=== PATIENT | female | born 1960 | race Caucasian/White ===

== ENCOUNTER 2024-10-30 08:40 | Outpatient (REF) | payer BC, SELFPAY ==
--- OUTSIDE RECORDS SUMMARY | 2024-10-30 09:04 | XMS_ITS | Clinical Summary ---
Author Organization 175 [facility] Address 175 [place] [address] Phone Care Team Providers Care Line Helper Name Role Phone Segun Scruggs MD Primary Care Provider [phone] Allergies No known active allergies Medications No known medications Encounters Date Type Department Care Team Description 10/21/2024 Telephone Internal Medicine [facility] 175 [facility] [address] [place] [phone] Nav Boateng [place] Results 10/18/2024 11:30 AM EDT Office Visit Internal Medicine [facility] [address] [phone] Segun Scruggs MD Leg cramp (Primary Dx); Smoker; Hip pain, unspecified laterality; Dizziness 08/05/2024 8:15 AM EDT - 08/05/2024 11:59 PM EDT Hospital Encounter Radiology Department - [address] [phone] Encounter for screening mammogram for breast cancer Discharge Disposition: Home or Self Care from Last 3 Months Surgical History Surgery Date Site/Laterality Comments ROTATOR CUFF REPAIR 2015 Right PROCEDURE: HISTORICAL ROTATOR CUFF REPAIR; COMMENT: JAYA's BREAST LUMPECTOMY PROCEDURE: HISTORICAL BREAST LUMPECTOMY; COMMENT: benign BREAST BIOPSY Right PROCEDURE: BX BREAST; PERC NEEDLE CORE W/IMAG GUID; COMMENT: benign at age 32 Medical History Medical History Date Comments Tobacco abuse disorder DX:Tobacc o abuse disorder Family History Medical History Relation Name Comments Heart attack Brother s/p stenting Prostate cancer Father lung cancer (+smoker) Alcohol abuse Maternal Grandmother Coronary artery disease Mother Heart attack Mother alocholism Stroke Mother Alcohol abuse Paternal Grandfather Alcohol abuse Paternal Grandmother Alcohol abuse Sister Breast cancer Neg Hx Colon cancer Neg Hx Ovarian cancer Neg Hx Relation Name Status Comments Brother Alive Father Maternal Grandfather unknown Other Maternal Grandmother Mother Paternal Grandfather Paternal Grandmother Sister Alive Social History Tobacco Use Types Packs/Day Years Used Date Smoking Tobacco: Every Day Cigarettes Smokeless Tobacco: Never Alcohol Use Standard Drinks/Week Comments Yes 0 (1 standard drink = 0.6 oz pur e alcohol) Comments No Sex and Gender Information Value Date Recorded Sex Assigned at Not on file Legal Sex Female 1:24 PM EST Gender Identity Not on file Sexual Orientation Not on file Obstetrics History Para Term AB IAB SAB Ectopic Multiple Livin g Live Births 2 2 2 2 Date Outcome GA Total Labor Labor/2nd/3rd Weight Sex Type Anes PTL Joselyn A1 A5 Name Clin Term Term Last Filed Vital Signs Vital Sign Reading Time Taken Comments Blood Pressure 128/70 10/18/2024 11:39 AM EDT Pulse 61 10/18/2024 11:39 AM EDT Temperature 36.2 ??C (97.1 ??F) 10/18/2024 11:39 AM E DT Respiratory Rate - - Oxygen Saturation 95% 10/18/2024 11:39 AM EDT Inhaled Oxygen Concentration - - Weight 65.9 kg (145 lb 3.2 oz) 10/18/2024 11:39 AM EDT Height 157.5 cm (5' 2 ) 10/31/2023 9:11 AM EDT Body Mass Index 26.56 10/31/2023 9:11 AM EDT Plan of Treatment Upcoming Encounters Date Type Department Care Team (Late st Contact Info) Description 11/08/2024 11:30 AM EDT Office Visit Internal Medicine - [place] 175 [facility] [address] [place] [phone] Segun Scruggs MD 175 [facility] [address] [place] [address] 01/08/2025 8:30 AM EDT Consult Vascular Surgery - [place] 300 [facility] [address] [place] [phone] Celia Chavez MD [address] [facility] [address] [place] [address] Health Maintenance Due Date Last Done Comments Pneumococcal Vaccine: 50+ Years (3 of 3 - PPSV23, PCV20 or PCV21) 04/09/2020 02/13/2020, 03/03/2010 Pneumococcal Vaccine: Pediatrics (0 to 5 Years) and At-Risk Patients (6 to 64 Years) (3 of 3 - PPSV23, PCV20 or PCV21) 04/09/2020 02/13/2020, 03/03/2010 Cervical Cancer Screening: Pap Smear 03/05/2022 03/05/2019 Colorectal Cancer Screening: Stool Based Tests (FOBT/FIT) 04/30/2022 Depression Screening 04/30/2022 HIV Screening 04/30/2022 Hepatitis C Screening 04/30/2022 Social Influencers of Health Screening 04/30/2022 COVID-19 Vaccine (7 - Pfizer risk season) 2024 02/23/2024, 08/10/2023, 10/29/2021, Additional history exists Lung Cancer Screening (Low Dose CT) 01/10/2025 01/11/2024, 01/10/2024 Breast Cancer Screening 08/05/2026 08/06/19, 07/13/2023, 07/05/2022, Additional history exists Cholesterol Screening (Lipid Panel) 10/21/2029 10/21/2024, 03/11/2024 DTaP,Tdap,and Td Vaccines (3 - Td or Tdap) 01/13/2030 01/14/2020, 12/07/2018 RSV Immunization Adult Patients Completed 03/17/2023 Zoster Vaccines Completed 08/10/2023, 06/16/2021 Influenza Vaccine Completed 02/23/2024, , 03/24/2022, Additional history exists HIB Vaccines Aged Out No longer eligi ble based on patient's age to complete this topic HPV Vaccines Aged Out No longer eligi ble based on patient's age to complete this topic Hepatitis A Vaccines Aged Out No long er eligible based on patient's age to complete this topic Hepatitis B Vaccines Aged Out No long er eligible based on patient's age to complete this topic IPV Vaccines Aged Out No longer eligi ble based on patient's age to complete this topic MMR Vaccines Aged Out No longer eligi ble based on patient's age to complete this topic Meningococcal ACWY Vaccine Aged Out N o longer eligible based on patient's age to complete this topic Meningococcal B Vaccine Aged Out No l onger eligible based on patient's age to complete this topic RSV Immunization Patients Under 20 months Aged Out No longer eligible based on patient's age to complete this topic Varicella Vaccines Aged Out No longer eligible based on patient's age to complete this topic Procedures Procedure Name Priority Date/Time Associated Diagnosis Comments CBC WITH AUTO DIFFERENTIAL Routine 10/21/2024 7:32 AM EDT Leg cramp Smoker Hip pain, unspecified laterality Dizziness CBC AND DIFFERENTIAL Routine 10/21/2024 7:32 AM EDT Leg cramp Smoker Hip pain, unspecified laterality Dizziness COMPREHENSIVE METABOLIC PANEL Routine 10/21/2024 7:32 AM EDT Leg cramp Smoker Hip pain, unspecified laterality Dizziness LIPID PANEL WITH REFLEX TO DIRECT LDL Routine 10/21/2024 7:32 AM EDT Leg cramp Smoker Hip pain, unspecified laterality Dizziness THYROID STIMULATING HORMONE Routine 10/21/2024 7:32 AM EDT Leg cramp Smoker Hip pain, unspecified laterality Dizziness VITAMIN D 25 HYDROXY Routine 10/21/2024 7:32 AM EDT Leg cramp Smoker Hip pain, unspecified laterality Dizziness CREATINE KINASE Routine 10/21/2024 7:32 AM EDT Leg cramp Smoker Hip pain, unspecified laterality Dizziness MG MAMMO DIGITAL SCREENING W SETWART BILAT Routine 08/05/2024 8:32 AM EDT Encounter for screening mammogram for breast cancer CT LUNG SCREENING LOW DOSE Routine 01/11/2024 2:38 PM EDT Encounter for screening for malignant neoplasm of respiratory organs PAP SMEAR Routine 03/05/2019 from Last 3 Months or Most Recently Relevant to Health Maintenance Results * (ABNORMAL) Lipid panel with reflex to direct LDL (10/21/2024 7:32 AM EDT) Cholesterol 212(H) 0 - 200 mg/dL LAB CHEMISTRY METHOD 10/21/2024 10:28 AM EDT [facility] Triglycerides 80 0 - 150 mg/dL LAB CHEMISTRY METHOD 10/21/2024 10:28 AM EDT [facility] HDL 59 >=40 mg/dL LAB CHEMISTRY METHOD 10/21/2024 10:28 AM EDT [facility] LDL Calculated 137(H) 0 - 100 mg/dL LAB CHEMISTRY METHOD 10/21/2024 10:28 AM EDT [facility] VLDL Cholesterol [place] 16 mg/dL LAB CHEMISTRY METHOD 10/21/2024 10:28 AM EDT [facility] Non HDL Chol. (LDL+VLDL) 153(H) <145 mg/dL LAB CHEMISTRY METHOD 10/21/2024 10:28 AM EDT [facility] Chol/HDL Ratio 3.6 0.0 - 4.4 LAB CHEMISTRY METHOD 10/21/2024 10:28 AM EDT [facility] Blood Venous blood specimen / Unknown Venipuncture / Unknown 10/21/2024 7:32 AM EDT 10/21/2024 7:32 AM EDT us Segun Scruggs MD LAB BLOOD ORDERABLES Final Resul t [facility] [address] [place] [address], [place] [phone] * CBC auto differential (10/21/2024 7:32 AM EDT) Pathologist [facility] WBC 6.2 4.8 - 10.8 K/mcL LAB HEMETOLOG[facility] RBC 4.70 3.80 - 4.80 M/mcL LAB HEMETOLOGY METHOD 10/21/2024 10:20 AM [facility] Hemoglobin 13.9 11.5 - 16.0 g/dL LAB HEMETOLOGY METHOD 10/21/2024 10:20 AM [facility] Hematocrit 42.0 35.0 - 47.0 % LAB HEMETOLOGY METHOD 10/21/2024 10:20 AM [facility] MCV 89.9 79.0 - 98.0 FL LAB HEMETOLOGY METHOD 10/21/2024 10:20 AM [facility] MCH 29.8 27.0 - 32.0 pcg LAB HEMETOLOGY METHOD 10/21/2024 10:20 AM [facility] MCHC 33.1 32.0 - 37.0 g/dL LAB HEMETOLOGY METHOD 10/21/2024 10:20 AM [facility] RDW 13.1 11.0 - 15.0 % LAB HEMETOLOGY METHOD 10/21/2024 10:20 AM [facility] Platelets 333 130 - 400 K/mcL LAB HEMETOLOGY METHOD 10/21/2024 10:20 AM [facility] MPV 10.9 7.0 - 11.0 FL LAB HEMETOLOGY METHOD 10/21/2024 10:20 AM [facility] NRBC 0.0 <1.0 % LAB HEMETOLOGY METHOD 10/21/2024 10:20 AM [facility] NRBC Absolute 0.00 <0.10 K/mcL LAB HEMETOLOGY METHOD 10/21/2024 10:20 AM [facility] Neutrophils Relative 53.0 % LAB HEMETOLOGY METHOD 10/21/2024 10:20 AM [facility] Lymphocytes Relative 32.4 % LAB HEMETOLOGY METHOD 10/21/2024 10:20 AM [facility] Monocytes Relative 6.9 % LAB HEMETOLOGY METHOD 10/21/2024 10:20 AM [facility] Eosinophils Relative 6.1 % LAB HEMETOLOGY METHOD 10/21/2024 10:20 AM [facility] Basophils Relative 1.3 % LAB HEMETOLOGY METHOD 10/21/2024 10:20 AM [facility] Immature Granulocytes Relative 0.3 % LAB HEMETOLOGY METHOD 10/21/2024 10:20 AM [facility] Neutrophils Absolute 3.31 1.50 - 7.00 K/mcL LAB HEMETOLOGY METHOD 10/21/2024 10:20 AM [facility] Lymphocytes Absolute 2.02 1.00 - 5.00 K/mcL LAB HEMETOLOGY METHOD 10/21/2024 10:20 AM [facility] Monocytes Absolute 0.43 0.20 - 1.00 K/mcL LAB HEMETOLOGY METHOD 10/21/2024 10:20 AM [facility] Eosinophils Absolute 0.38 0.00 - 0.50 K/mcL LAB HEMETOLOGY METHOD 10/21/2024 10:20 AM [facility] Basophils Absolute 0.08 0.00 - 0.20 K/mcL LAB HEMETOLOGY METHOD 10/21/2024 10:20 AM [facility] Immature Granulocytes Absolute 0.02 0.00 - 0.03 K/mcL LAB HEMETOLOGY METHOD 10/21/2024 10:20 AM [facility] Blood Venous blood specimen / Unknown Venipuncture / Unknown 10/21/2024 7:32 AM EDT 10/21/2024 7:32 AM EDT us Segun Scruggs MD LAB BLOOD ORDERABLES Final Resul t Performing Organization Address [facility]/ZIP Co de Phone Number [facility] [address] [place] [address], [place] [phone] * (ABNORMAL) Vitamin D 25 hydroxy (10/21/2024 7:32 AM EDT) Pathologist [facility] Vit D, 25-Hydroxy 27.2(L) 30.0 - 80.0 ng/mL LAB CHEMISTRY METHOD 10/21/2024 11:03 AM EDT [facility] Blood Venous blood specimen / Unknown Venipuncture / Unknown 10/21/2024 7:32 AM EDT 10/21/2024 7:32 AM EDT us Segun Scruggs MD LAB BLOOD ORDERABLES Final Resul t Performing Organization Address [facility] Co de Phone Number [facility] [address] [place] [address], [place] [phone] * Thyroid stimulating hormone (10/21/2024 7:32 AM EDT) Pathologist [facility] TSH 1.36 0.40 - 4.00 mcIU/mL LAB CHEMISTRY METHOD 10/21/2024 11:04 AM EDT [facility] Blood Venous blood specimen / Unknown Venipuncture / Unknown 10/21/2024 7:32 AM EDT 10/21/2024 7:32 AM EDT us Segun Scruggs MD LAB BLOOD ORDERABLES Final Resul t Performing Organization Address [facility] Co de Phone Number [facility] [address] [place] [address], [place] [phone] * Creatine kinase (10/21/2024 7:32 AM EDT) Pathologist [facility] Total CK 56 22 - 269 unit/L LAB CHEMISTRY METHOD 10/21/2024 10:28 AM EDT [facility] Blood Venous blood specimen / Unknown Venipuncture / Unknown 10/21/2024 7:32 AM EDT 10/21/2024 7:32 AM EDT Segun Scruggs MD LAB BLOOD ORDERABLES Final Resul t [facility] [address] [place] [address], * Comprehensive metabolic panel (10/21/2024 7:32 AM EDT) Sodium 140 133 - 145 mmol/L LAB CHEMISTRY METHOD 10/21/2024 10:28 AM [facility] Potassium 5.1 3.5 - 5.5 mmol/L LAB CHEMISTRY METHOD 10/21/2024 10:28 AM [facility] Chloride 107 96 - 110 mmol/L LAB CHEMISTRY METHOD 10/21/2024 10:28 AM [facility] CO2 29 21 - 32 mmol/L LAB CHEMISTRY METHOD 10/21/2024 10:28 AM [facility] Anion Gap 4 3 - 11 LAB CHEMISTRY METHOD 10/21/2024 10:28 AM [facility] Glucose 95 70 - 100 mg/dL LAB CHEMISTRY METHOD 10/21/2024 10:28 AM [facility] BUN 12 5 - 25 mg/dL LAB CHEMISTRY METHOD 10/21/2024 10:28 AM [facility] Creatinine 0.85 0.50 - 1.10 mg/dL LAB CHEMISTRY METHOD 10/21/2024 10:28 AM [facility] eGFR 78 >=60 mL/min/1. 73m2 LAB CHEMISTRY METHOD 10/21/2024 10:28 AM [facility] Comment:Calculation based on the Chronic Kidney Disease Epidemiology Collaboration (CKD-EPI) equation refit without adjustment for race. BUN/Creatinine Ratio 14.1 LAB CHEMISTRY METHOD 10/21/2024 10:28 AM EDT [facility] Calcium 9.1 8.5 - 10.5 mg/dL LAB CHEMISTRY METHOD 10/21/2024 10:28 AM [facility] AST (SGOT) 14 10 - 42 unit/L LAB CHEMISTRY METHOD 10/21/2024 10:28 AM [facility] ALT (SGPT) 19 10 - 60 unit/L LAB CHEMISTRY METHOD 10/21/2024 10:28 AM T [facility] Alkaline Phosphatase 104 42 - 121 unit/L LAB CHEMISTRY METHOD 10/21/2024 10:28 AM [facility] Total Protein 6.8 6.0 - 8.0 g/dL LAB CHEMISTRY METHOD 10/21/2024 10:28 AM [facility] Albumin 3.8 3.2 - 5.0 g/dL LAB CHEMISTRY METHOD 10/21/2024 10:28 AM [facility] Total Bilirubin 0.3 0.0 - 1.4 mg/dL LAB CHEMISTRY METHOD 10/21/2024 10:28 AM [facility] Blood Venous blood specimen / Unknown Venipuncture / Unknown 10/21/2024 7:32 AM EDT 10/21/2024 7:32 AM EDT us Segun Scruggs MD LAB BLOOD ORDERABLES Final Resul t [facility] [address] [place] [address], [place] [phone] * MG Mammo Digital Screening w Stewart bilat (08/05/2024 8:32 AM EDT) Anatomical Region Laterality Modality Breast Bilateral Mammography 08/05/2024 8:35 PM EDT Impressions 08/05/2024 8:36 PM EDT No mammographic evidence of malignancy. BREAST DENSITY: B - There are scattered areas of fibroglandular density. BI-RADS CATEGORY: 1 - NEGATIVE RECOMMENDATION: Screening bilateral mammogram is recommended in 1 year. MAMMO LOCATION: [facility], [address] [place] [address], [id number], . -------- FINAL REPORT -------- Dictated By: Anitha Irving Dictated Date: 08/05/2024 20:35 ET Assigned Physician: Anitha Irving Reviewed and Electronically Signed By: Anitha Irving Signed Date: 08/05/2024 20:36 ET Workstation ID: [id number] Transcribed By: Self Edit Transcribed Date: 08/05/2024 20:35 ET Narrative 08/05/2024 8:36 PM EDT EXAM: Screening Mammogram CLINICAL: 64 years old, Female, routine annual exam. ??History of a benign right core biopsy. COMPARISON: 07/13/2023 and as far back as 07/01/2021 ?? TECHNIQUE: Bilateral MLO and CC views were obtained digitally with 3-D mammogram (digital breast tomosynthesis). Computer-aided detection was utilized in evaluation of this exam (CAD). FINDINGS: No new suspicious mass, architectural distortion, or suspicious calcifications. Biopsy clip again noted in the retroareolar right breast. Procedure Note Anitha Irving MD - 08/05/2024 EXAM: Screening Mammogram CLINICAL: 64 years old, Female, routine annual exam. History of a benignright core biopsy. COMPARISON: 07/13/2023 and as far back as 07/01/2021 TECHNIQUE: Bilateral MLO and CC views were obtained digitally with 3-Dmammogram (digital breast tomosynthesis). Computer-aided detection wasutilized in evaluation of this exam (CAD). FINDINGS: No new suspicious mass, architectural distortion, or suspiciouscalcifications. Biopsy clip again noted in the retroareolar rightbreast. IMPRESSION: No mammographic evidence of malignancy. BREAST DENSITY: B - There are scattered areas of fibroglandular density. BI-RADS CATEGORY: 1 - NEGATIVE RECOMMENDATION: Screening bilateral mammogram is recommended in 1 year. MAMMO LOCATION: [facility], [address] [place], [place], [address], . -------- FINAL REPORT -------- Dictated By: Anitha Irving Dictated Date: 08/05/2024 20:35 ET Assigned Physician: Anitha Irving Reviewed and Electronically Signed By: Anitha Irving Signed Date: 08/05/2024 20:36 ET Workstation ID: [id number] Transcribed By: Self Edit Transcribed Date: 08/05/2024 20:35 ET us Segun Scruggs MD IMG BI PROCEDURES Final Result * CT LUNG SCREENING LOW DOSE (01/11/2024 2:38 PM EDT) Anatomical Region Laterality Modality Computed Tomogra phy 01/10/2024 10:2 4 AM EDT Narrative 01/11/2024 2:38 PM EDT [facility] Diagnostic Imaging Department [address] [place] [address] [id number] Patient: ??FLORENCIA TREVINO ?/Age/Sex: 1960 - 63 - F Unit#: ??[id number] ? Location/Status: ??SPDICATLS/REG CLI ? Mnemonic/Ordering Site: ??CTLUNGLD/SPCT Ordering Physician: ??KRISTA JOSEPH MD CT Lung Screening Low Dose - 01/10/24 - 1031 Report Status:Signed Chest CT, 01/11/2024 2:02 PM. TECHNIQUE: Low-dose CT of the chest without intravenous contrast administration. ??Coronal and sagittal reformats and MIP reconstructions were created. Dose length product: ??158 mGy-cm. HISTORY: CURRENT SMOKER; 25 [address]ORD[address] COMPARISON: 03/09/2022. FINDINGS: Lungs/pleura: Minimal aspirated debris in the trachea. ??Normal caliber airways. No endobronchial nodule. ??Mild scarring and traction bronchiectasis at the medial lung apices. ??Mild centrilobular emphysema. ??The previous examination demonstrated multifocal irregular pulmonary nodules which have largely resolved. There is a 3 mm right middle lobe nodule in the right middle lobe which previously measured 6 mm (series 3, image 168). ??2 small (2 mm) nodules in the lingula, images 118 and 114, suspected to represent small airways mucus plugging. ??Mild bronchial wall thickening and centrilobular groundglass nodularity in the right upper lobe (image 78, for example), suggesting mucus plugging. ??No pleural effusion or pneumothorax. Mediastinum/willard: Normal mediastinum Vasculature: Mild atherosclerotic calcifications of the aorta and great vessels. ??Normal caliber pulmonary artery. Cardiac: Normal heart size. ??Mild coronary artery calcification. Chest wall: No mass or lymphadenopathy. Limited abdomen: Unremarkable. Bones: Degenerative changes of the shoulders, right greater than left. Sclerotic lesion in the right glenoid, suggestive of a bone island and unchanged . ??Moderate degenerative changes of the spine. IMPRESSION: Improved appearance of the lungs compared with 03/09/2022. ??That prior study demonstrated multiple focal ill-defined pulmonary nodules which have largely resolved. ??There are a few small nodules. ??The largest is in the right middle lobe and measures 3 mm; this is smaller than on the prior study. ??A few areas of centrilobular ground glass nodularity suggesting small airways mucus plugging are noted. Lung RADS 2. ??Guidelines recommend repeat low-dose screening CT in 12 months. Dictating Physician: ??CONCEPCION ALCARAZ MD Electronically Signed by: ??CONCEPCION ALCARAZ MD Dic Date/Time: ??01/11/24 1402 Sign date/Time: ??01/11/24 1438 Procedure Note Concepcion Alcaraz MD - 03/06/2024 [facility] Diagnostic Imaging Department [address] [place] [address] [id number] Patient: FLORENCIA TREVINO /Age/Sex: 1960 - 63 - F Unit#: [id number] Location/Status: SPDICATLS/REG CLI Mnemonic/Ordering Site: [facility] Ordering Physician: KRISTA JOSEPH MD CT Lung Screening Low Dose - 01/10/24 - 1031 Report Status:Signed Chest CT, 01/11/2024 2:02 PM. TECHNIQUE: Low-dose CT of the chest without intravenous contrast administration. Coronal and sagittal reformats and MIP reconstructionswere created. Dose length product: 158 mGy-cm. HISTORY: CURRENT SMOKER; 25 [address] COMPARISON: 03/09/2022. FINDINGS: Lungs/pleura: Minimal aspirated debris in the trachea. Normal caliberairways. No endobronchial nodule. Mild scarring and traction bronchiectasis atthe medial lung apices. Mild centrilobular emphysema. The previousexamination demonstrated multifocal irregular pulmonary nodules which have largelyresolved. There is a 3 mm right middle lobe nodule in the right middle lobe which previously measured 6 mm (series 3, image 168). 2 small (2 mm) nodules inthe lingula, images 118 and 114, suspected to represent small airways mucus plugging. Mild bronchial wall thickening and centrilobular groundglass nodularity in the right upper lobe (image 78, for example), suggestingmucus plugging. No pleural effusion or pneumothorax. Mediastinum/willard: Normal mediastinum Vasculature: Mild atherosclerotic calcifications of the aorta and great vessels. Normal caliber pulmonary artery. Cardiac: Normal heart size. Mild coronary artery calcification. Chest wall: No mass or lymphadenopathy. Limited abdomen: Unremarkable. Bones: Degenerative changes of the shoulders, right greater than left. Sclerotic lesion in the right glenoid, suggestive of a bone island andunchanged . Moderate degenerative changes of the spine. IMPRESSION: Improved appearance of the lungs compared with 03/09/2022. That priorstudy demonstrated multiple focal ill-defined pulmonary nodules which havelargely resolved. There are a few small nodules. The largest is in the rightmiddle lobe and measures 3 mm; this is smaller than on the prior study. A fewareas of centrilobular ground glass nodularity suggesting small airways mucusplugging are noted. Lung RADS 2. Guidelines recommend repeat low-dose screening CT in 12months. Dictating Physician: CONCEPCION ALCARAZ MD Electronically Signed by: CONCEPCION ALCARAZ MD Dic Date/Time: 01/11/24 1402 Sign date/Time: 01/11/24 1438 Krista Joseph MD IM CT PROCEDURES Final Result * Pap smear (03/05/2019) 03/05/2019 Narrative HISTORICAL TESTING LAB RESULTING AGENCY - 03/08/2019 4:56 PM EDT [id number] THINPREP PAP, IMAGED: NEGATIVE FOR SQUAMOUS INTRAEPITHELIAL LESION AND MALIGNANCY . ATROPHY. CARSON LOPEZ , CT(ASCP) (CASE ELECTRONICALLY SIGNED 03 08 2019) RESULT OF APTIMA HIGH RISK HPV ASSAY: HIGH RISK HPV: ??NEGATIVE (SEROTYPES 16,18,31,33,35,39,45,51,52,56,58,59,66,68) COMPLETED ON 2019-03-07 ADEQUACY: SATISFACTORY . SOURCE: THINPREP PAP HPV ANY DX: ??REFLEX 16 AND 18, CERVICAL, IMAGED CLINICAL INFORMATION: HPV ANY DIAGNOSIS. PAP HX NEG, Z12.4. Carson Denson DO LAB CYTOLOGY ORDERABLES Final Result HISTORICAL TESTING LAB RESULTING AGENCY from Last 3 Months or Most Recently Relevant to Health Maintenance Insurance [facility] Care Teams Line Helper Relationship Specialty Start Date End Date Segun Scruggs MD [address] [facility] [address] [place] [address] PCP - General Internal Medicine 11/29/19
[2024-10-30 10:28] LABS: Rheumatoid Factor < 13.0 IU/mL (<15.0)
[2024-10-30 10:29] LABS: Anion Gap 11 (12-20); Blood Urea Nitrogen 10 mg/dL (9-16); Calcium 9.4 mg/dL (8.4-10.2); Carbon Dioxide 28 mmol/L (22-29); Chloride 105 mmol/L (96-108); Estimated Glomerular Filt Rate > 60; Glucose Fasting 91 mg/dL (60-99); Potassium 3.8 mmol/L (3.3-5.1); Sodium 140 mmol/L (135-145)
[2024-10-30 11:27] LABS: Erythrocyte Sedimentation Rate 6 MM/HR (0-20)
[2024-10-31 05:13] LABS: Lyme Abs Screen <0.90 index
[2024-11-01 09:59] LABS: IgA 294 mg/dL (70-320); IgG 796 mg/dL (600-1540); IgM 141 mg/dL (50-300)
[2024-11-05 11:15] LABS: Anti Nuclear Antibody Pattern Nuclear, Speckled; Anti Nuclear Antibody Screen POSITIVE (NEGATIVE); Anti Nuclear Antibody Titer 1:40 titer
== END 2024-10-30 08:41 | disposition home or self-care (01) ==
LOC: HO.LAB 08:40
PROVIDERS: PCP Internal Medicine; Visit Provider Psychiatry & Neurology Neurology
DX: M79.604 Pain in right leg (principal); G62.9 Polyneuropathy, unspecified
CPT/HCPCS: 36415; 80048; 82550; 82784; 85652; 86038; 86039; 86334; 86431; 86617; 86618

== ENCOUNTER 2024-11-26 10:52 | Outpatient (REF) | payer BC, SELFPAY ==
--- NOTE | 2024-11-26 | EMG_ITS ---
Please refer to the attached neurophysiology report MTDD
--- OUTSIDE RECORDS SUMMARY | 2024-11-26 11:56 | XMS_ITS | Clinical Summary ---
Author Organization 175 [facility] Address 175 [place] [address] Phone Care Team Providers Care [facility] Name Role Phone Segun Scruggs MD Primary Care Provider Allergies No known active allergies Medications No known medications Encounters Date Type Department Care Team Description 11/25/2024 2:30 PM EDT Office Visit Internal Medicine [facility] [address] [phone] Segun Scruggs MD Adult general medical examination (Primary Dx); Bunion of left foot; Hypercholesterolemia; Screening for colon cancer 10/21/2024 Telephone Internal Medicine [facility] [address] [phone] Nav Boateng [place] Results 10/18/2024 11:30 AM EDT Office Visit Internal Medicine [facility] [address] [phone] Segun Scruggs MD Leg cramp (Primary Dx); Smoker; Hip pain, unspecified laterality; Dizziness from Last 3 Months Surgical History Surgery Date Site/Laterality Comments ROTATOR CUFF REPAIR 2014 Right PROCEDURE: HISTORICAL ROTATOR CUFF REPAIR; COMMENT: [...] Sign Reading Time Taken Comments Blood Pressure 128/60 11/25/2024 2:19 PM EDT Pulse 71 11/25/2024 2:19 PM EDT Temperature 36.2 C (97.2 F) 11/25/2024 2:19 PM EDT Respiratory Rate - - Oxygen Saturation 98% 11/25/2024 2:19 PM EDT Inhaled Oxygen Concentration - - Weight 67.3 kg (148 lb 6.4 oz) 11/25/2024 2:19 P M EDT Height 157.5 cm (5' 2 ) 11/25/2024 2:19 PM EDT Body Mass Index 27.14 11/25/2024 2:19 PM EDT Plan of Treatment Upcoming Encounters Date Type Department Care Team (Late st Contact Info) Description 01/08/2025 8:30 AM EDT Consult Vascular Surgery - [place] [address] [place] [address] Celia Chavez MD [address] [facility] [address] [place] [address] 11/26/2025 9:00 AM EDT Office Visit Internal Medicine - [place] [address] [facility] [address] [place] [address] Segun Scruggs MD 175 [facility] [place] [address] [place] [address] Health Maintenance Due Date Last Done Comments Cervical Cancer Screening: Pap Smear 03/05/2022 03/05/2019 Colorectal Cancer Screening: Stool Based Tests (FOBT/FIT) 04/30/2022 Depression Screening 04/30/2022 HIV Screening 04/30/2022 Hepatitis C Screening 04/30/2022 Social Influencers of Health Screening 04/30/2022 Lung Cancer Screening (Low Dose CT) 01/10/2025 01/11/2024, 01/10/2024 Influenza Vaccine (#1) 2025 , 03/17/2023, 03/24/2022, Additional history exists Pneumococcal Vaccine: 50+ Years (3 of 3 - PCV20 or PCV21) 02/12/2025 02/13/2020, 03/03/2010 Breast Cancer Screening 08/05/2026 08/06/19, 07/13/2023, 07/05/2022, Additional history exists Cholesterol Screening (Lipid Panel) 10/21/2029 10/21/2024, 03/11/2024 DTaP,Tdap,and Td Vaccines (3 - Td or Tdap) 01/13/2030 01/14/2020, 12/07/2018 RSV Immunization Adult Patients Completed 03/17/2023 Zoster Vaccines Completed 08/10/2023, 06/16/2021 COVID-19 Vaccine Completed 02/23/2024, , 10/29/2021, Additional history exists HIB Vaccines Aged Out [...] laterality Dizziness MG MAMMO DIGITAL SCREENING W STEWART BILAT Routine 08/05/2024 8:32 AM EDT Encounter [...] LAB CHEMISTRY METHOD 10/21/2024 10:28 AM EDT [facility] Triglycerides 80 0 - 150 mg/dL LAB CHEMISTRY METHOD 10/21/2024 10:28 AM EDT [facility] HDL 59 >=40 mg/dL LAB CHEMISTRY METHOD 10/21/2024 10:28 AM EDT [facility] LDL Calculated 137(H) 0 - 100 mg/dL LAB CHEMISTRY METHOD 10/21/2024 10:28 AM EDT [facility] VLDL Cholesterol [place] 16 mg/dL LAB CHEMISTRY METHOD 10/21/2024 10:28 AM EDT [facility] Non HDL Chol. (LDL+VLDL) 153(H) <145 mg/dL LAB CHEMISTRY METHOD 10/21/2024 10:28 AM EDT [facility] Chol/HDL Ratio 3.6 0.0 - 4.4 LAB CHEMISTRY METHOD 10/21/2024 10:28 AM EDT [facility] Blood Venous blood specimen / Unknown Venipuncture / Unknown 10/21/2024 7:32 AM EDT 10/21/2024 7:32 AM EDT us Segun Scruggs MD LAB BLOOD ORDERABLES Final Resul t [facility] [address] [place] [address], [place] [phone] * CBC auto differential (10/21/2024 7:32 AM EDT) Pathologist [facility] WBC 6.2 4.8 - 10.8 K/mcL LAB HEMETOLOGY METHOD 10/21/2024 10:20 AM EDT [facility] RBC 4.70 3.80 - 4.80 M/mcL LAB HEMETOLOGY METHOD 10/21/2024 10:20 AM [facility] Hemoglobin 13.9 11.5 - 16.0 g/dL LAB HEMETOLOGY METHOD 10/21/2024 10:20 AM [facility] Hematocrit 42.0 35.0 - 47.0 % LAB HEMETOLOGY METHOD 10/21/2024 10:20 AM [facility] MCV 89.9 79.0 - 98.0 FL LAB HEMETOLOGY METHOD 10/21/2024 10:20 AM [facility] MCH 29.8 27.0 - 32.0 pcg LAB HEMETOLOGY METHOD 10/21/2024 10:20 AM [facility] MCHC 33.1 32.0 - 37.0 g/dL LAB HEMETOLOGY METHOD 10/21/2024 10:20 AM [facility] RDW 13.1 11.0 - 15.0 % LAB HEMETOLOGY METHOD 10/21/2024 10:20 AM [facility] Platelets 333 130 - 400 K/mcL LAB HEMETOLOGY METHOD 10/21/2024 10:20 AM [facility] MPV 10.9 7.0 - 11.0 FL LAB HEMETOLOGY METHOD 10/21/2024 10:20 AM [facility] NRBC 0.0 <1.0 % LAB HEMETOLOGY METHOD 10/21/2024 10:20 AM [facility] NRBC Absolute 0.00 <0.10 K/mcL LAB HEMETOLOGY METHOD 10/21/2024 10:20 AM [facility] Neutrophils Relative 53.0 % LAB HEMETOLOGY METHOD 10/21/2024 10:20 AM [facility] Lymphocytes Relative 32.4 % LAB HEMETOLOGY METHOD 10/21/2024 10:20 AM [facility] Monocytes Relative 6.9 % LAB HEMETOLOGY METHOD 10/21/2024 10:20 AM [facility] Eosinophils Relative 6.1 % LAB HEMETOLOGY METHOD 10/21/2024 10:20 AM [facility] Basophils Relative 1.3 % LAB HEMETOLOGY METHOD 10/21/2024 10:20 AM [facility] Immature Granulocytes Relative 0.3 % LAB HEMETOLOGY METHOD 10/21/2024 10:20 AM [facility] Neutrophils Absolute 3.31 1.50 - 7.00 K/mcL LAB HEMETOLOGY METHOD 10/21/2024 10:20 AM [facility] Lymphocytes Absolute 2.02 1.00 - 5.00 K/mcL LAB HEMETOLOGY METHOD 10/21/2024 10:20 AM [facility] Monocytes Absolute 0.43 0.20 - 1.00 K/mcL LAB HEMETOLOGY METHOD 10/21/2024 10:20 AM [facility] Eosinophils Absolute 0.38 0.00 - 0.50 K/mcL LAB HEMETOLOGY METHOD 10/21/2024 10:20 AM [facility] Basophils Absolute 0.08 0.00 - 0.20 K/mcL LAB HEMETOLOGY METHOD 10/21/2024 10:20 AM [facility] Immature Granulocytes Absolute 0.02 0.00 - 0.03 K/mcL LAB HEMETOLOGY METHOD 10/21/2024 10:20 AM [facility] Blood Venous blood specimen / Unknown Venipuncture / Unknown 10/21/2024 7:32 AM EDT 10/21/2024 7:32 AM EDT us Segun Scruggs MD LAB BLOOD ORDERABLES Final Resul t Performing Organization Address City/[facility] Co de Phone Number [facility] [address] [place] [address], * (ABNORMAL) Vitamin D 25 hydroxy (10/21/2024 7:32 AM EDT) Pathologist [facility] Vit D, 25-Hydroxy 27.2(L) 30.0 - 80.0 ng/mL LAB CHEMISTRY METHOD 10/21/2024 11:03 AM EDT [facility] Blood Venous blood specimen / Unknown Venipuncture / Unknown 10/21/2024 7:32 AM EDT 10/21/2024 7:32 AM EDT us Segun Scruggs MD LAB BLOOD ORDERABLES Final Resul t Performing Organization Address [facility] de Phone Number [facility] [address] [place] [address], * Thyroid stimulating hormone (10/21/2024 7:32 AM EDT) [facility] TSH 1.36 0.40 - 4.00 mcIU/mL LAB CHEMISTRY METHOD 10/21/2024 11:04 AM EDT [facility] Blood Venous blood specimen / Unknown Venipuncture / Unknown 10/21/2024 7:32 AM EDT 10/21/2024 7:32 AM EDT us Segun Scruggs MD LAB BLOOD ORDERABLES Final Resul t Performing Organization Address [facility] Co de Phone Number [facility] [address] [place] [address], * Creatine kinase (10/21/2024 7:32 AM EDT) [facility] Total CK 56 22 - 269 unit/L LAB CHEMISTRY METHOD 10/21/2024 10:28 AM EDT [facility] Blood Venous blood specimen / Unknown Venipuncture / Unknown 10/21/2024 7:32 AM EDT 10/21/2024 7:32 AM EDT us Segun Scruggs MD LAB BLOOD ORDERABLES Final Resul t [facility] [address] [place] [address], [place] [phone] * Comprehensive metabolic panel (10/21/2024 7:32 AM EDT) Pathologist [facility] Sodium 140 133 - 145 mmol/L LAB CHEMISTRY METHOD 10/21/2024 10:28 AM [facility] Potassium 5.1 3.5 - 5.5 mmol/L LAB CHEMISTRY METHOD 10/21/2024 10:28 AM [facility] Chloride 107 96 - 110 mmol/L LAB CHEMISTRY METHOD 10/21/2024 10:28 AM [facility] CO2 29 21 - 32 mmol/L LAB CHEMISTRY METHOD 10/21/2024 10:28 AM [facility] Anion Gap 4 3 - 11 LAB CHEMISTRY METHOD 10/21/2024 10:28 AM [facility] Glucose 95 70 - 100 mg/dL LAB CHEMISTRY METHOD 10/21/2024 10:28 AM [facility] BUN 12 5 - 25 mg/dL LAB CHEMISTRY METHOD 10/21/2024 10:28 AM [facility] Creatinine 0.85 0.50 - 1.10 mg/dL LAB CHEMISTRY METHOD 10/21/2024 10:28 AM [facility] eGFR 78 >=60 mL/min/1. 73m2 LAB CHEMISTRY METHOD 10/21/2024 10:28 AM [facility] Comment:Calculation based on the Chronic Kidney Disease Epidemiology Collaboration (CKD-EPI) equation refit without adjustment for race. BUN/Creatinine Ratio 14.1 LAB CHEMISTRY METHOD 10/21/2024 10:28 AM EDT [facility] Calcium 9.1 8.5 - 10.5 mg/dL LAB CHEMISTRY METHOD 10/21/2024 10:28 AM EDT [facility] AST (SGOT) 14 10 - 42 unit/L LAB CHEMISTRY METHOD 10/21/2024 10:28 AM EDT [facility] ALT (SGPT) 19 10 - 60 unit/L LAB CHEMISTRY METHOD 10/21/2024 10:28 AM EDT [facility] Alkaline Phosphatase 104 42 - 121 unit/L LAB CHEMISTRY METHOD 10/21/2024 10:28 AM [facility] Total Protein 6.8 6.0 - 8.0 g/dL LAB CHEMISTRY METHOD 10/21/2024 10:28 AM [facility] Albumin 3.8 3.2 - 5.0 g/dL LAB CHEMISTRY METHOD 10/21/2024 10:28 AM [facility] Total Bilirubin 0.3 0.0 - 1.4 mg/dL LAB CHEMISTRY METHOD 10/21/2024 10:28 AM [facility] Blood Venous blood specimen / Unknown Venipuncture / Unknown 10/21/2024 7:32 AM EDT 10/21/2024 7:32 AM EDT us Segun Scruggs MD LAB BLOOD ORDERABLES Final Resul t [facility] [address] [place] [address], [place] [phone] * MG Mammo Digital Screening w Stewart bilat (08/05/2024 8:32 AM EDT) Anatomical Region Laterality Modality Breast Bilateral Mammography 08/05/2024 8:35 PM EDT Impressions 08/05/2024 8:36 PM EDT No mammographic evidence of malignancy. BREAST DENSITY: B - There are scattered areas of fibroglandular density. BI-RADS CATEGORY: 1 - NEGATIVE RECOMMENDATION: Screening bilateral mammogram is recommended in 1 year. MAMMO LOCATION: [facility], [address] [place] [address], [id number], . -------- FINAL REPORT -------- Dictated By: Anitha Irving Dictated Date: 08/05/2024 20:35 ET Assigned Physician: Anitha Irving Reviewed and Electronically Signed By: Anitha Irving Signed Date: 08/05/2024 20:36 ET Workstation ID: [id number] Transcribed By: Self Edit Transcribed Date: 08/05/2024 20:35 ET Narrative 08/05/2024 8:36 PM EDT EXAM: Screening Mammogram CLINICAL: 64 years old, Female, routine annual exam. History of a benign right core biopsy. COMPARISON: [...] is recommended in 1 year. MAMMO LOCATION: [facility], [address] [place] [address], [id number], . -------- FINAL REPORT -------- Dictated By: Anitha Irving Dictated Date: 08/05/2024 20:35 ET Assigned Physician: Anitha Irving Reviewed and Electronically Signed By: Anitha Irving Signed Date: 08/05/2024 20:36 ET Workstation ID: [id number] Transcribed By: Self Edit Transcribed Date: 08/05/2024 20:35 ET us Segun Scruggs MD IMG BI PROCEDURES Final Result * CT LUNG SCREENING LOW DOSE (01/11/2024 2:38 PM EDT) Anatomical Region Laterality Modality Computed Tomogra phy 01/10/2024 10:2 4 AM EDT Narrative 01/11/2024 2:38 PM EDT [facility] Diagnostic Imaging Department [address] [place] [address] Patient: YOSEF TREVINOA /Age/Sex: 1960 - 63 - F Unit#: [id number] [facility] Mnemonic/Ordering Site: [facility] Ordering Physician: KRISTA JOSEPH MD CT Lung Screening Low Dose - 01/10/24 - 1031 Report Status:Signed Chest CT, 01/11/2024 2:02 PM. TECHNIQUE: Low-dose CT of the chest without intravenous contrast administration. Coronal and sagittal reformats and MIP reconstructions were created. Dose length product: 158 mGy-cm. HISTORY: CURRENT SMOKER; 25 [address] COMPARISON: 03/09/2022. FINDINGS: Lungs/pleura: Minimal aspirated debris in the trachea. Normal caliber airways. No endobronchial nodule. Mild scarring and traction bronchiectasis at the medial lung apices. Mild centrilobular emphysema. The previous examination demonstrated multifocal irregular pulmonary nodules which have largely resolved. There is a 3 mm right middle lobe nodule in the right middle lobe which previously measured 6 mm (series 3, image 168). 2 small (2 mm) nodules in the lingula, images 118 and 114, suspected to represent small airways mucus plugging. Mild bronchial wall thickening and centrilobular groundglass nodularity in the right upper lobe (image 78, for example), suggesting mucus plugging. No pleural effusion or pneumothorax. Mediastinum/willard: [...] of a bone island and unchanged . Moderate degenerative changes of the spine. IMPRESSION: Improved appearance of the lungs compared with 03/09/2022. That prior study demonstrated multiple focal ill-defined pulmonary nodules which have largely resolved. There are a few small nodules. The largest is in the right middle lobe and measures 3 mm; this is smaller than on the prior study. A few areas of centrilobular ground glass nodularity suggesting small airways mucus plugging are noted. Lung RADS 2. Guidelines recommend repeat low-dose screening CT in 12 months. Dictating Physician: CONCEPCION ALCARAZ MD Electronically Signed by: CONCEPCION ALCARAZ MD Dic Date/Time: 01/11/24 1402 Sign date/Time: 01/11/24 1430 Procedure Note Concepcion Alcaraz MD - 03/06/2024 [facility] Diagnostic Imaging Department [address] [place] [id number] Patient: FLORENCIA TREVINO /Age/Sex: 1960 - 63 - F Unit#: [id number] Location/Status: SPDICATLS/REG CLI Mnemonic/Ordering Site: [facility] Ordering Physician: KRISTA JOSEPH MD CT Lung [...] Date/Time: 01/11/24 1402 Sign date/Time: 01/11/24 1438 us Krista Joseph MD IMG CT PROCEDURES Final Result * Pap smear (03/05/2019) 03/05/2019 Narrative HISTORICAL TESTING LAB RESULTING AGENCY - 03/08/2019 4:56 PM EDT [id number] THINPREP PAP, IMAGED: NEGATIVE FOR SQUAMOUS INTRAEPITHELIAL LESION AND MALIGNANCY . ATROPHY. CARSON LOPEZ , CT(ASCP) (CASE ELECTRONICALLY SIGNED 03 08 2019) RESULT OF APTIMA HIGH RISK HPV ASSAY: HIGH RISK HPV: NEGATIVE (SEROTYPES 16,18,31,33,35,39,45,51,52,56,58,59,66,68) COMPLETED ON 2019-03-07 ADEQUACY: SATISFACTORY . SOURCE: THINPREP PAP HPV ANY DX: REFLEX 16 AND 18, CERVICAL, IMAGED CLINICAL INFORMATION: HPV ANY DIAGNOSIS. PAP HX NEG, Z12.4. us Carson Denson DO LAB CYTOLOGY ORDERABLES Final Result HISTORICAL TESTING LAB RESULTING AGENCY from Last 3 Months or Most Recently Relevant to Health Maintenance Insurance [facility] Care Teams Hospitality Internship Relationship Specialty Start Date End Date Segun Scruggs MD 175 [facility] [address] [place] [address] PCP - General Internal Medicine 11/29/19
== END 2024-11-26 10:53 | disposition home or self-care (01) ==
LOC: HO.NEURO 10:52
PROVIDERS: PCP Internal Medicine; Visit Provider Psychiatry & Neurology Neurology
DX: M79.604 Pain in right leg (principal)
CPT/HCPCS: 95886; 95913

== ENCOUNTER → 2024-11-26 11:00 | Outpatient (BNV) | payer BC, SELFPAY | PROVIDERS: PCP Internal Medicine; Visit Provider Psychiatry & Neurology Neurology | DX: M79.605 Pain in left leg (principal); M79.604 Pain in right leg | CPT/HCPCS: 95886; 95913 ==

== ENCOUNTER 2024-12-12 09:32 | Outpatient (AMB) | payer BC, SELFPAY ==
--- NOTE | 2024-12-12 09:45 | A.OFFVIS_ITS ---
Intake Visit Reasons: f/u after NCV and lab work Allergies No Known Allergies Allergy (Verified 12/10/24 08:40) HPI Comments Details: 64 yo RH woman with bilateral leg pain that started in August of 2024. There was no trigger. She had chronic low back pain but this pain was new. It was all around the legs below waist level and was present most of the time. It was aching type of pain, like a hurt. It was not a leg cramp. Legs were also stiff. Pain was worse with sitting too long or being on feet for too long. Walking did not make it worse. Pain level could be 9-10. [facility] Medical History (Updated 12/12/24 @ 10:03 by Shan Rivera MD) Peripheral neuropathy Review of Systems Const Details: Constitutional:?No fever, chills, fatigue, weight loss, or night sweats. HEENT:?No headache, vision changes, hearing loss, nasal congestion, sore throat. Neurological:?No dizziness, syncope, seizures, numbness, tingling, weakness, tremors, memory loss. Psychiatric:?No anxiety, depression, mood swings, sleep disturbance, or hallucinations. Endocrine:?No heat/cold intolerance, polydipsia, polyuria, or hair/skin changes. Hematologic/Lymphatic:?No easy bruising, bleeding, or lymphadenopathy. Integumentary (Skin):?No rash, lesions, itching, or color changes. ? Physical Exam Neuro Other: Mental Status: Alert and oriented to person, place, and time. Normal attention. Normal spontaneous speech, fluency, and comprehension. No obvious issues with mood and memory. Affect is appropriate. Cranial Nerves: CN II: Visual peterson full to confrontation, visual acuity intact. CN III, IV, : Pupils equal, round, reactive to light and accommodation. Extraocular movements are normal. CN V: Facial sensation is normal. CN VII: Facial movements symmetrical. CN VIII: Hearing intact to bedside conversation is normal. CN IX, X: Palate elevates symmetrically. CN XI: Shoulder shrug and head turn symmetrical. CN XII: Tongue midline without atrophy or fasciculations. Extrapyramidal: Full facial expressions and blinking. No rigidity. Movements are appropriate with no tremor or abnormality. Speech: Normal; no dysarthria or tremor. Assessment & Plan Assessment & Plan (1) Leg pain, bilateral: Comment: EMG/NCS at off in November 2024: Mod left peroneal neuropathy, otherwise ok Code(s): M79.604 - Pain in right leg; M79.605 - Pain in left leg Category: Medical Plan Impression: Bilateral leg pain of unknown etiology, not in a radicular distribution, with normal exam, normal labs, and no findings on EMG/NCS to explain. Rec: Small fiber neuropathy is a possiblity and she was educated about skin nerve biopsy for investigation. She wanted to finish consultation with vascular service before considering it. Vascular etiology seems less likely as the pain was not much changed by rest or inactivity. Coding Level of Care Code Est Pt Level 4 (90542) Diagnoses Leg pain, bilateral M79.604; M79.605
--- OUTSIDE RECORDS SUMMARY | 2024-12-12 10:12 | XMS_ITS | Clinical Summary ---
Author Organization 175 [facility] Address [address] [place] [address] Phone Care Team Providers Care Copy Chaser Name Role Phone Segun Scruggs MD Primary Care Provider [phone] Allergies No known active allergies Medications No known medications Encounters Date Type Department Care Team Description 11/25/2024 2:30 PM EDT Office Visit Internal Medicine [facility] [address] [phone] Segun Scruggs MD Adult general medical examination (Primary Dx); Bunion of left foot; Hypercholesterolemia; Screening for colon cancer 10/21/2024 Telephone Internal Medicine [facility] [address] [phone] Nav Boateng [place] Results 10/18/2024 11:30 AM EDT Office Visit Internal Medicine [facility] [address] [phone] Segun Scruggs MD Leg cramp (Primary Dx); [...] 8:30 AM EDT Consult Vascular Surgery - [place] [address] [place] [address] Celia Chavez MD [address] [facility] [address] [place] [address] 01/11/2025 7:15 AM EDT Appointment [facility] CT Scan [address] [place] [phone] 02/11/2025 8:45 AM EDT Consult Orthopedic Surgery - [place] [address] [facility] 250 [place] [phone] Bonifacio Drake DPM 175 [facility] [address] [place] [address] 11/26/2025 9:00 AM EDT Office Visit Internal Medicine - [place] 175 [facility] 200 [place] [phone] Segun Scruggs MD 175 [facility] 200 [place] [address] Health Maintenance Due Date Last Done Comments Cervical Cancer Screening: Pap Smear 03/05/2022 03/05/2019 Colorectal Cancer Screening: Stool Based Tests (FOBT/FIT) 04/30/2022 HIV Screening 04/30/2022 Hepatitis C Screening 04/30/2022 Social Influencers of Health Screening 04/30/2022 Depression Screening 05/22/2024 Lung Cancer Screening (Low Dose CT) 01/10/2025 [...] Procedure Name Priority Date/Time Associated Diagnosis Comments LAB A[facility]ON COLON CANCER SCREEN Routine 12/02/2024 7:30 AM EDT Screening for colon cancer CBC WITH AUTO DIFFERENTIAL Routine 10/21/2024 7:32 [...] Relevant to Health Maintenance Results * (ABNORMAL) Cologuard?? colon cancer screening (12/02/2024 7:30 AM EDT) COLOGUARD Positive( A) Negative Webymaster Comment: The Cologuard (TM) test was performed on this specimen. POSITIVE TEST RESULT. A positive Cologuard result should be followed with a colonoscopy or visual examination of the colon. The normal value (reference range) for this assay is negative. TEST DESCRIPTION: Composite algorithmic analysis of stool DNA-biomarkers with hemoglobin immunoassay. Quantitative values of individual biomarkers are not reportable and are not associated with individual biomarker result reference ranges. Cologuard is intended for colorectal cancer screening of adults of either sex, 45 years or older, who are at average-risk for colorectal cancer (CRC). Cologuard has been approved for use by the U.S. FDA. The performance of Cologuard was established in a cross sectional study of average-risk adults aged 50-84. Cologuard performance in patients ages 45 to 49 years was estimated by sub-group analysis of near-age groups. Colonoscopies performed for a positive result may find as the most clinically significant lesion: colorectal cancer [4.0%], advanced adenoma (including sessile serrated polyps greater than or equal to 1cm diameter) [20%] or non- advanced adenoma [31%]; or no colorectal neoplasia [45%]. These estimates are derived from a prospective cross-sectional screening study of 10,000 individuals at average risk for colorectal cancer who were screened with both Cologuard and colonoscopy. (Rona Powell al, N Engl J Med 2014;370(14):4256-6073.) Cologuard may produce a false negative or false positive result (no colorectal cancer or precancerous polyp present at colonoscopy follow up). A negative Cologuard test result does not guarantee the absence of CRC or advanced adenoma (pre-cancer). The current Cologuard screening interval is every 3 years. ([place] [employer] and U.S. Multi-Society Task Force). Cologuard performance data in a 10,000 patient pivotal study using colonoscopy as the reference method can be accessed at the following location: www.[employer]/results. Additional description of the Cologuard test process, warnings and precautions can be found at www.[employer]. Stool 12/02/2024 7:30 AM EDT 12/03/2024 10:20 AM EDT Segun Scruggs MD LAB MOLECULAR DIAGNOSTICS ORDERA BLES Final Result [employer] [address] [place] [place] [address] [employer] [facility] [address] [place] [address] * (ABNORMAL) Lipid panel with reflex to direct LDL (10/21/2024 7:32 AM EDT) Cholesterol 212(H) 0 - 200 mg/dL LAB CHEMISTRY METHOD 10/21/2024 10:28 AM EDT [facility] Triglycerides 80 0 - 150 mg/dL LAB CHEMISTRY METHOD 10/21/2024 10:28 AM EDT [facility] HDL 59 >=40 mg/dL LAB CHEMISTRY METHOD 10/21/2024 10:28 AM EDT [facility] LDL Calculated 137(H) 0 - 100 mg/dL LAB CHEMISTRY METHOD 10/21/2024 10:[address] [facility] VLDL Cholesterol [place] 16 mg/dL LAB CHEMISTRY METHOD 10/21/2024 10:28 AM EDT [facility] Non HDL Chol. (LDL+VLDL) 153(H) <145 mg/dL LAB CHEMISTRY METHOD 10/21/2024 10:28 AM EDT [facility] Chol/HDL Ratio 3.6 0.0 - 4.4 LAB CHEMISTRY METHOD 10/21/2024 10:[address] [facility] Blood Venous blood specimen / Unknown Venipuncture / Unknown 10/21/2024 7:32 AM EDT 10/21/2024 7:32 AM EDT us Segun Scruggs MD LAB BLOOD ORDERABLES Final Resul t [facility] [address] [place] [address], [place] [phone] * CBC auto differential (10/21/2024 7:32 AM EDT) WBC 6.2 4.8 - 10.8 K/mcL LAB HEMETOLOGY METHOD 10/21/2024 10:[address] [facility] RBC 4.70 3.80 - 4.80 M/mcL LAB HEMETOLOGY METHOD 10/21/2024 10:[address] [facility] Hemoglobin 13.9 11.5 - 16.0 g/dL LAB HEMETOLOGY METHOD 10/21/2024 10:[address] [facility] Hematocrit 42.0 35.0 - 47.0 % LAB HEMETOLOGY METHOD 10/21/2024 10:[address] [facility] MCV 89.9 79.0 - 98.0 FL LAB HEMETOLOGY METHOD 10/21/2024 10:[address] [facility] MCH 29.8 27.0 - 32.0 pcg LAB HEMETOLOGY METHOD 10/21/2024 10:[address] [facility] MCHC 33.1 32.0 - 37.0 g/dL LAB HEMETOLOGY METHOD 10/21/2024 10:[address] [facility] RDW 13.1 11.0 - 15.0 % LAB HEMETOLOGY METHOD 10/21/2024 10:[address] [facility] Platelets 333 130 - 400 K/mcL LAB HEMETOLOGY METHOD 10/21/2024 10:[address] [facility] MPV 10.9 7.0 - 11.0 FL LAB HEMETOLOGY METHOD 10/21/2024 10:[address] [facility] NRBC 0.0 <1.0 % LAB HEMETOLOGY METHOD 10/21/2024 10:[address] [facility] NRBC Absolute 0.00 <0.10 K/mcL LAB HEMETOLOGY METHOD 10/21/2024 10:[address] [facility] Neutrophils Relative 53.0 % LAB HEMETOLOGY METHOD 10/21/2024 10:[address] [facility] Lymphocytes Relative 32.4 % LAB HEMETOLOGY METHOD 10/21/2024 10:[address] [facility] Monocytes Relative 6.9 % LAB HEMETOLOGY METHOD 10/21/2024 10:[address] [facility] Eosinophils Relative 6.1 % LAB HEMETOLOGY METHOD 10/21/2024 10:[address] [facility] Basophils Relative 1.3 % LAB HEMETOLOGY METHOD 10/21/2024 10:[address] [facility] Immature Granulocytes Relative 0.3 % LAB HEMETOLOGY METHOD 10/21/2024 10:[address] [facility] Neutrophils Absolute 3.31 1.50 - 7.00 K/mcL LAB HEMETOLOGY METHOD 10/21/2024 10:[address] [facility] Lymphocytes Absolute 2.02 1.00 - 5.00 K/mcL LAB HEMETOLOGY METHOD 10/21/2024 10:20 AM EDT [facility] Monocytes Absolute 0.43 0.20 - 1.00 K/[facility] LAB HEMETOLOGY METHOD 10/21/2024 10:20 AM EDT [facility] Eosinophils Absolute 0.38 0.00 - 0.50 K/[facility] HEMETOLOGY METHOD 10/21/2024 10:20 AM EDT [facility] Basophils Absolute 0.08 0.00 - 0.20 K/[facility] HEMETOLOGY METHOD 10/21/2024 10:20 AM EDT [facility] Immature Granulocytes Absolute 0.02 0.00 - 0.03 K/[facility] HEMETOLOGY METHOD 10/21/2024 10:20 AM EDT [facility] Blood Venous blood specimen / Unknown Venipuncture / Unknown 10/21/2024 7:32 AM EDT 10/21/2024 7:32 AM EDT us Segun Scruggs MD LAB BLOOD ORDERABLES Final Resul t [facility] [address] [place] [address], [place] [phone] * (ABNORMAL) Vitamin D 25 hydroxy (10/21/2024 7:32 AM EDT) Vit D, 25-Hydroxy 27.2(L) 30.0 - 80.0 ng/mL LAB CHEMISTRY METHOD 10/21/2024 11:03 AM EDT [facility] Blood Venous blood specimen / Unknown Venipuncture / Unknown 10/21/2024 7:32 AM EDT 10/21/2024 7:32 AM EDT us Segun Scruggs MD LAB BLOOD ORDERABLES Final Resul t [facility] [address] [place] [address], [place] [phone] * Thyroid stimulating hormone (10/21/2024 7:32 AM EDT) [facility] TSH 1.36 0.40 - 4.00 mcIU/mL LAB CHEMISTRY METHOD 10/21/2024 11:04 AM EDT [facility] Blood Venous blood specimen / Unknown Venipuncture / Unknown 10/21/2024 7:32 AM EDT 10/21/2024 7:32 AM EDT us Segun Scruggs MD LAB BLOOD ORDERABLES Final Resul t Performing Organization Address City/[facility]/ZIP Co de Phone Number [facility] [address] [place] [address], [place] [phone] * Creatine kinase (10/21/2024 7:32 AM EDT) [facility] Total CK 56 22 - 269 unit/L LAB CHEMISTRY METHOD 10/21/2024 10:28 AM EDT [facility] Blood Venous blood specimen / Unknown Venipuncture / Unknown 10/21/2024 7:32 AM EDT 10/21/2024 7:32 AM EDT us Segun Scruggs MD LAB BLOOD ORDERABLES Final Resul t [facility] [address] [place] [address], [place] [phone] * Comprehensive metabolic panel (10/21/2024 7:32 AM EDT) [facility] Sodium 140 133 - 145 mmol/L LAB CHEMISTRY METHOD 10/21/2024 10:28 AM EDT [facility] Potassium 5.1 3.5 - 5.5 mmol/L LAB CHEMISTRY METHOD 10/21/2024 10:28 AM EDT [facility] Chloride 107 96 - 110 mmol/L LAB CHEMISTRY METHOD 10/21/2024 10:[address] [facility] CO2 29 21 - 32 mmol/L LAB CHEMISTRY METHOD 10/21/2024 10:[address] [facility] Anion Gap 4 3 - 11 LAB CHEMISTRY METHOD 10/21/2024 10:[address] [facility] Glucose 95 70 - 100 mg/dL LAB CHEMISTRY METHOD 10/21/2024 10:[address] [facility] BUN 12 5 - 25 mg/dL LAB CHEMISTRY METHOD 10/21/2024 10:[address] [facility] Creatinine 0.85 0.50 - 1.10 mg/dL LAB CHEMISTRY METHOD 10/21/2024 10:[address] [facility] eGFR 78 >=60 mL/min/1. 73m2 LAB CHEMISTRY METHOD 10/21/2024 10:[address] [facility] Comment:Calculation based on the Chronic Kidney Disease Epidemiology Collaboration (CKD-EPI) equation refit without adjustment for race. BUN/Creatinine Ratio 14.1 LAB CHEMISTRY METHOD 10/21/2024 10:[address] [facility] Calcium 9.1 8.5 - 10.5 mg/dL LAB CHEMISTRY METHOD 10/21/2024 10:[address] [facility] AST (SGOT) 14 10 - 42 unit/L LAB CHEMISTRY METHOD 10/21/2024 10:[address] [facility] ALT (SGPT) 19 10 - 60 unit/L LAB CHEMISTRY METHOD 10/21/2024 10:[address] [facility] Alkaline Phosphatase 104 42 - 121 unit/L LAB CHEMISTRY METHOD 10/21/2024 10:[address] [facility] Total Protein 6.8 6.0 - 8.0 g/dL LAB CHEMISTRY METHOD 10/21/2024 10:[address] [facility] Albumin 3.8 3.2 - 5.0 g/dL LAB CHEMISTRY METHOD 10/21/2024 10:28 AM EDT [facility] Total Bilirubin 0.3 0.0 - 1.4 mg/dL LAB CHEMISTRY METHOD 10/21/2024 10:28 AM EDT [facility] Blood Venous blood specimen / Unknown Venipuncture / Unknown 10/21/2024 7:32 AM EDT 10/21/2024 7:32 AM EDT us Segun Scruggs MD LAB BLOOD ORDERABLES Final Resul t [facility] [address] [place] [address], [place] [phone] * MG Mammo Digital Screening w Stewart bilat (08/05/2024 8:32 AM EDT) Anatomical Region Laterality Modality Breast Bilateral Mammography 08/05/2024 8:35 PM EDT Impressions 08/05/2024 8:36 PM EDT No mammographic evidence of malignancy. BREAST DENSITY: B - There are scattered areas of fibroglandular density. BI-RADS CATEGORY: 1 - NEGATIVE RECOMMENDATION: Screening bilateral mammogram is recommended in 1 year. MAMMO LOCATION: [facility], [address] [place] [address], [id number], . -------- FINAL REPORT -------- Dictated By: Anitha Irving Dictated Date: 08/05/2024 20:35 ET Assigned Physician: Anitha Irving Reviewed and Electronically Signed By: Anitha Irving Signed Date: 08/05/2024 20:36 ET Workstation ID: [id number] Transcribed By: Self Edit Transcribed Date: 08/05/2024 [...] is recommended in 1 year. MAMMO LOCATION: [facility], [address] [place] [address], [phone], . -------- FINAL REPORT -------- Dictated By: Anitha Irving Dictated Date: 08/05/2024 20:35 ET Assigned Physician: Anitha Irving Reviewed and Electronically Signed By: Anitha Irving Signed Date: 08/05/2024 20:36 ET Workstation ID: [id number] Transcribed By: Self Edit Transcribed Date: 08/05/2024 20:35 ET us Segun Scruggs MD IMG BI PROCEDURES Final Result * CT LUNG SCREENING LOW DOSE (01/11/2024 2:38 PM EDT) Anatomical Region Laterality Modality Computed Tomogra phy 01/10/2024 10:2 4 AM EDT Narrative 01/11/2024 2:38 PM EDT [facility] Diagnostic Imaging Department [address] [place] [id number] Patient: FLORENCIA MARTÍNEZ /Age/Sex: 1960 - 63 - F Unit#: [id number] Location/Status: SPDICATLS/REG CLI Mnemonic/[facility] Ordering Physician: KRISTA JOSEPH MD CT Lung [...] Dic Date/Time: 01/11/24 1402 Sign date/Time: 01/11/24 143 Procedure Note Concepcion Alcaraz MD - 03/06/2024 [facility] Diagnostic Imaging Department [address] [place] [address] Patient: FLORENCIA MARTÍNEZ /Age/Sex: 1960 - 63 - F Unit#: [id number] Location/Status: SPDICATLS/REG CLI Mnemonic/Ordering Site: [facility] Ordering Physician: KRISTA JOSEPH MD CT Lung [...] Dic Date/Time: 01/11/24 1402 Sign date/Time: 01/11/24 143 Krista Joseph MD IM CT PROCEDURES Final Result * Pap smear (03/05/2019) 03/05/2019 Narrative HISTORICAL TESTING LAB RESULTING AGENCY - 03/08/2019 4:56 PM EDT [id number] THINPREP PAP, IMAGED: NEGATIVE FOR SQUAMOUS INTRAEPITHELIAL [...] Most Recently Relevant to Health Maintenance Insurance [facility] Care Teams Copy Chaser Relationship Specialty Start Date End Date Segun Scruggs MD [address] [address] PCP - General Internal Medicine 11/29/19
--- OUTSIDE RECORDS SUMMARY | 2024-12-12 10:12 | XMS_ITS ---
Author Name [facility] Organization Unknown Care Team Organization Name Specialty Phone Email Start Date End Da meghan [facility] TONI TUBBS Primary Care 03/29/2022 01/08/20 24
== END 2024-12-12 10:07 | disposition home or self-care (01) ==
LOC: HO.HSM 09:33
PROVIDERS: PCP Internal Medicine; Visit Provider Psychiatry & Neurology Neurology
DX: M79.604 Pain in right leg (principal); M79.605 Pain in left leg
CPT/HCPCS: 99214